=== PATIENT | female | born 1995 | race Hispanic/Latino ===

== ENCOUNTER 2024-01-20 01:15 | Emergency (ER) | payer SELFPAY ==
[~2024-01-20] VITALS: Ht 157.5 cm; Wt 72.1 kg
[2024-01-20] MEDS: 0.9%NACL 1000ML 1,000 ML IV ONE (01:45)
[2024-01-20] MEDS: ondanSETRON 4MG INJ IVP ONE (01:45)
[2024-01-20] MEDS: acetaMINOPHEN 500 MG TABLET PO ONE (01:45)
[2024-01-20 02:03] LABS: BASOPHILS # (AUTO) 0.02 K/uL (0.00-0.20); BASOPHILS % (AUTO) 0.3 % (0.0-5.0); EOSINOPHILS # (AUTO) 0.16 K/uL (0.00-0.70); EOSINOPHILS % (AUTO) 2.1 % (0.0-8.0); HEMATOCRIT 33.1 % (36-48); IMMATURE GRANULOCYTE ABSOLUTE 0.03 K/uL (0-1); LYMPHOCYTES % (AUTO) 25.7 % (21.0-51.0); MEAN CORPUSCULAR HEMOGLOBIN 32.8 pg (27.0-33.0); MEAN CORPUSCULAR HGB CONC 34.7 g/dL (32.0-36.0); MEAN CORPUSCULAR VOLUME 94.3 fL (79-99); MONOCYTES # (AUTO) 0.6 K/uL (0.1-1.0); MONOCYTES % (AUTO) 7.8 % (3.0-13.0); NEUTROPHILS % (AUTO) 63.7 % (40.0-77.0); PLATELET COUNT (AUTO) 205 K/uL (130-400); RED BLOOD CELL COUNT(AUTO) 3.51 MIL/uL (4.00-5.50); RED CELL DISTRIBUTION WIDTH 12.1 % (11.0-15.5); WHITE BLOOD COUNT (AUTO) 7.8 K/uL (4.8-10.8)
[2024-01-20 02:12] LABS: CREATININE 0.6 mg/dL (0.5-1.0); POTASSIUM 3.7 mmol/L (3.5-5.1)
[2024-01-20 02:31] LABS: APPEARANCE,URINE CLOUDY (CLEAR); BILIRUBIN,URINE NEGATIVE (NEGATIVE); COLOR,URINE LIGHT-YELLOW (YELLOW); GLUCOSE, URINE (UA) 500 mg/dL (NEGATIVE); KETONES,URINE 5 mg/dL (NEGATIVE); LEUKOCYTE ESTERASE ,URINE 250 Leu/uL (NEGATIVE); NITRATE,URINE NEGATIVE (NEGATIVE); OCCULT BLOOD,URINE NEGATIVE (NEGATIVE); PROTEIN,URINE 10 mg/dL (NEGATIVE); UROBILINOGEN,URINE 0.2 mg/dL (0.2-1.0)
[2024-01-20 02:32] LABS: ADD UA MICROSCOPIC YES
[2024-01-20 02:43] LABS: BACTERIA,URINE None Seen /HPF (None Seen)
[2024-01-20 02:44] LABS: MUCUS,URINE Rare LPF (None Seen); SQUAMOUS EPITHELIAL CELL,UR Many /HPF (0-2)
[2024-01-20 02:46] LABS: HCG,QUALITATIVE URINE POSITIVE (NEGATIVE)
[2024-01-20] MEDS: cefTRIAXone 1G VIAL IVPB ONE (03:07)
[2024-01-20 03:55] VITALS: BP 108/66; PULSE 98; RESP 18; TEMP 98.4; O2SAT 99
[2024-01-20] MEDS ORDERED: NITR100C4 PO (03:58)
[2024-01-20] MEDS ORDERED: ONDA-243 PO (03:58)
== END 2024-01-20 04:04 | disposition home or self-care (01) ==
LOC: EDH 01:15
DX: O23.41 Unspecified infection of urinary tract in pregnancy, first trimester (principal); N39.0 Urinary tract infection, site not specified; R10.2 Pelvic and perineal pain; O21.0 Mild hyperemesis gravidarum; Z3A.10 10 weeks gestation of pregnancy
CPT/HCPCS: 99285; 96374; 76801; 96375; 80048; 84702; 85025; 87086; 81001; 81025; 36415; J7030; J0696; J2405

== ENCOUNTER 2024-04-10 20:27 | Emergency (ER) | payer SELFPAY ==
[~2024-04-10] VITALS: Ht 157.5 cm; Wt 73.9 kg
[~2024-04-10 20:27] MED LIST: NITR100C4 PO; ONDA-243 PO
[2024-04-10] MEDS: cefTRIAXone 1G VIAL IM ONE (21:10)
[2024-04-10 21:15] LABS: BASOPHILS # (AUTO) 0.04 K/uL (0.00-0.20); BASOPHILS % (AUTO) 0.4 % (0.0-5.0); EOSINOPHILS # (AUTO) 0.18 K/uL (0.00-0.70); EOSINOPHILS % (AUTO) 1.8 % (0.0-8.0); HEMATOCRIT 32.4 % (36-48); IMMATURE GRANULOCYTE ABSOLUTE 0.12 K/uL (0-1); LYMPHOCYTES # (AUTO) 2.6 K/uL (1.0-4.8); LYMPHOCYTES % (AUTO) 26.2 % (21.0-51.0); MEAN CORPUSCULAR HEMOGLOBIN 32.8 pg (27.0-33.0); MEAN CORPUSCULAR VOLUME 96.7 fL (79-99); MONOCYTES # (AUTO) 0.8 K/uL (0.1-1.0); MONOCYTES % (AUTO) 7.7 % (3.0-13.0); NEUTROPHILS # (AUTO) 6.3 K/uL (1.8-7.7); NEUTROPHILS % (AUTO) 62.7 % (40.0-77.0); PLATELET COUNT (AUTO) 236 K/uL (130-400); RED BLOOD CELL COUNT(AUTO) 3.35 MIL/uL (4.00-5.50); RED CELL DISTRIBUTION WIDTH 12.6 % (11.0-15.5); WHITE BLOOD COUNT (AUTO) 10.1 K/uL (4.8-10.8)
[2024-04-10 21:28] LABS: CREATININE 0.5 mg/dL (0.5-1.0); POTASSIUM 4.1 mmol/L (3.5-5.1)
--- NOTE | 2024-04-10 21:58 | ERN ---
General Chief Complaint: Abscess Stated Complaint: ABSCESS Time Seen by MD: 20:32 Time Seen by Midlevel: 20:32 Source: patient History of Present Illness Initial Comments Patient is a 29-year-old female who is currently approximately 20 weeks presents to the emergency department with a perirectal abscess. The abscess is in the right inner buttock area. It has been ongoing for the last four days. She denies any fever, chills, or any other symptoms at home. She states she has not seen an OBGYN for this but was recently diagnosed with a urinary tract infection and was put on Macrobid. Today is the last day she has been on that medication. No other symptoms reported at this time Allergies: Coded Allergies: No Known Allergies (Unverified Allergy, Unknown, 01/20/24) Home Meds Active Scripts Nitrofurantoin Monohyd/M-Cryst (Macrobid 100 mg Capsule) 100 Mg Capsule, 100 MG PO BID for 7 Days, #14 CAP Prov:IKE KUHN MD 01/20/24 Ondansetron (Ondansetron Odt) 4 Mg Tab.rapdis, 4 MG PO Q6H PRN for nausea for 5 Days, #12 TAB 0 Refills Prov:IKE KUHN MD 01/20/24 Past Medical History Past Medical History: No Pertinent History Past Surgical History: Tonsillectomy, Other Surgical History Other: D & C Female( History) LMP: Dec 10, 2023 : 5 Para: 1 Aborts: 3 ROS Dictation CONSTITUTIONAL: Negative except for HPI HEAD/FACE: Negative except for HPI EENT: Negative except for HPI RESPIRATORY: Negative except for HPI GASTROINTESTINAL/ABDOMINAL: Negative except for HPI GENITOURINARY: Negative except for HPI MUSCULOSKELETAL: Negative except for HPI INTEGUMENTARY: Negative except for HPI NEUROLOGICAL/PSYCH: Negative except for HPI HEMATOLOGIC/LYMPHATIC: Negative except for HPI All Systems Negative, Except as noted above. 13 point review of systems assessed and all negative except for above. Physical Exam Physical Exam Dictation Vital Signs reviewed General Appearance: Alert, oriented x 3, no acute distress, well developed, nourished. Head and Face: non-traumatic. Eyes: PERRL, pink conjunctivas, eyelid no trauma, anterior chamber with arcus senilis. Ears: Pinnas intact and no signs of trauma or erythema ear canals clear and no discharge TM no erythema Nose: No discharge, no bleeding. Oropharynx: Mouth normal, tongue pink, pharynx clear,no erythema, tonsils no exudates, no abscesses noted, mucous membrane moist Neck: Supple, non-tender, no thyromegaly, no masses, no JVD, no bruits Breast:Deferred Chest:No tenderness, no crepitus, no paradoxical movement, no retractions Lungs:Clear, well-ventilated, symmetric, no rales, no wheezing, no rhonchi, no stridor, good breath sounds bilaterally Heart: Regular rate, regular rhythm, no murmur, no gallops Vascular: no peripheral edema, Abdomen: Soft, positive bowel sounds, nondistended, no guarding, nontender, no rebound, no masses no hepatomegaly, no splenomegaly, no Newman's sign, no hernias. Rectal: Deferred Genital: Deferred Neurological: Normal speech, motor function intact, sensory function intact Musculoskeletal: Neck nontender, full range of motion, back nontender, full range of motion, Extremities: nontender, full range of motion Skin: Right inner perirectal abscess Lymphatic: Deferred Results Laboratory and Microbiology Lab and Micro Result Laboratory Tests Test 04/10/24 21:05 White Blood Count 10.1 K/uL (4.8-10.8) Red Blood Count 3.35 MIL/uL (4.00-5.50) L Hemoglobin 11.0 g/dL (12.0-16.0) L Hematocrit 32.4 % (36-48) L Mean Corpuscular Volume 96.7 fL (79-99) Mean Corpuscular Hemoglobin 32.8 pg (27.0-33.0) Mean Corpuscular Hemoglobin Concent 34.0 g/dL (32.0-36.0) Red Cell Distribution Width 12.6 % (11.0-15.5) Platelet Count 236 K/uL (130-400) Mean Platelet Volume 10.5 fL (7.5-10.5) Immature Granulocyte % (Auto) 1.2 % (0-1) H Neutrophils (%) (Auto) 62.7 % (40.0-77.0) Lymphocytes (%) (Auto) 26.2 % (21.0-51.0) Monocytes (%) (Auto) 7.7 % (3.0-13.0) Eosinophils (%) (Auto) 1.8 % (0.0-8.0) Basophils (%) (Auto) 0.4 % (0.0-5.0) Neutrophils # (Auto) 6.3 K/uL (1.8-7.7) Lymphocytes # (Auto) 2.6 K/uL (1.0-4.8) Monocytes # (Auto) 0.8 K/uL (0.1-1.0) Eosinophils # (Auto) 0.18 K/uL (0.00-0.70) Basophils # (Auto) 0.04 K/uL (0.00-0.20) Absolute Immature Granulocyte (auto 0.12 K/uL (0-1) Nucleated Red Blood Cells 0.0 % (0.0-0.19) Sodium Level 138 mmol/L (136-145) Potassium Level 4.1 mmol/L (3.5-5.1) Chloride Level 106 mmol/L (101-111) Carbon Dioxide Level 24 mmol/L (21-32) Blood Urea Nitrogen 11 mg/dL (7-18) Creatinine 0.5 mg/dL (0.5-1.0) Glomerular Filtration Rate Calc 132 mL/min (>90) Random Glucose 85 mg/dL (70-105) Lactic Acid Level 1.1 mmol/L (0.8-2.5) Total Calcium 8.6 mg/dL (8.5-10.1) Labs Reviewed?: Yes MDM MDM: Differential diagnosis: Perirectal abscess, cellulitis, perianal abscess There are no social concerns with this patient. Prescription drug management Prescriptions will include: Keflex Medical management and examination interpretation discussions were had by me with other qualified healthcare professionals as indicated for the patient's care. ED Course Orders Procedure Category Date Status Time Cbc With Differential LAB 04/10/24 Complete 20:53 Basic Metabolic Panel LAB 04/10/24 Complete 20:53 Lactic Acid LAB 04/10/24 Complete 20:53 Us Soft Tissue US 04/10/24 Taken Perineum 20:53 Ceftriaxone 1g Vial PHA 04/10/24 Complete (Rocephine 1g Inj) 21:00 Current Medications Medications (Trade) Dose Ordered Sig/Daren Route PRN Reason Start Time Stop Time Status Last Admin Dose Admin Ceftriaxone Sodium (ROCEphine 1G INJ) 1 gm ONCE ONCE IM 04/10/24 21:00 04/10/24 21:01 DC 04/10/24 21:10 Vital Signs Date Time Temp Pulse Resp B/P (MAP) Pulse Ox O2 Delivery O2 Flow Rate FiO2 04/10/24 20:50 98.1 110 18 130/80 99 Room Air* 0 21 04/10/24 20:29 97.9 110 18 131/83 99 0 [facility] [address] [place] [address] IMAGING REPORT Signed PATIENT: SONIA IYER MR#: [id number] : 1995 SEX: F AGE: 29 LOCATION: [facility] ORDER 56 STATUS: REG ER REPORT#: [id number] SERVICE 52 REASON: r/o perirectal abscess ORDERING PHYSICIAN: VI DAHL PROCEDURE: SOFT PERIN - US SOFT TISSUE PERINEUM US SOFT TISSUE PERINEUM HISTORY: perirectal abscess COMPARISON: None FINDINGS: In the area of interest there is a 3.1 x 1.6 x 2.7 cm complex fluid collection with adjacent hyperemia most consistent with perirectal abscess. IMPRESSION: Perirectal abscess. DICTATED BY: EARLINE DIGGS DO DATE: 04/10/242156 ELECTRONICALLY SIGNED BY: EARLINE DIGGS DO DATE: 04/10/242199 DX & DISP Disposition: Discharge Departure Impression: Primary Impression: Perirectal abscess Condition: Stable Scripts Cephalexin Monohydrate (Keflex) 500 Mg Cap 500 MG PO QID for 7 Days, #28 CAP Prov: VI DAHL 04/10/24 Additional Instructions: Your blood work today is unremarkable. Your ultrasound shows a perirectal abscess which is consistent with the physical exam that we performed. You were given IV antibiotics in the emergency department. I have given you a prescription for oral antibiotics for outpatient management. You will need to follow up with your primary care doctor in 2-3 days for repeat evaluation. I have also given you a follow up with the general surgeon cecum follow up outpatient. Referrals: JAYDEN HORTON (PCP) TOMMIE KEMP MD Time of Disposition: 22:05 I have reviewed the case, and I agree with, Diagnosis and Plan I performed the substantive portion of the visit. I have reviewed and personally made and approve the management plan that is documented in the note by myself or the YVONNE. I acknowledge for responsibility for the patient's manage ment plan. VI DAHL Apr 10, 2024 21:58
[2024-04-10] MEDS ORDERED: CEPH500B PO (22:05)
[2024-04-10 22:06] VITALS: BP 126/76; PULSE 90; RESP 16; TEMP 98.1; O2SAT 98
== END 2024-04-10 22:19 | disposition home or self-care (01) ==
LOC: EDH 20:27
DX: O99.712 Diseases of the skin and subcutaneous tissue complicating pregnancy, second trimester (principal); K61.1 Rectal abscess; Z90.89 Acquired absence of other organs; Z3A.17 17 weeks gestation of pregnancy
CPT/HCPCS: 99285; 76857; 80048; 85025; 83605; 36415; 96372; J0696

== ENCOUNTER 2024-07-14 23:41 | Emergency (ER) | payer MEDICAID ==
[~2024-07-14] VITALS: Ht 160 cm; Wt 78.5 kg
[~2024-07-14 23:41] MED LIST changes: +CEPH500B PO
[2024-07-15 00:31] LABS: CREATININE 0.7 mg/dL (0.5-1.0)
[2024-07-15 00:45] LABS: ADD UA MICROSCOPIC YES; APPEARANCE,URINE CLOUDY (CLEAR); BILIRUBIN,URINE NEGATIVE (NEGATIVE); COLOR,URINE YELLOW (YELLOW); GLUCOSE, URINE (UA) NEGATIVE (NEGATIVE); KETONES,URINE 5 mg/dL (NEGATIVE); LEUKOCYTE ESTERASE ,URINE 75 Leu/uL (NEGATIVE); NITRATE,URINE NEGATIVE (NEGATIVE); OCCULT BLOOD,URINE NEGATIVE (NEGATIVE); PH,URINE 6.5 (5.0-8.0); PROTEIN,URINE 30 mg/dL (NEGATIVE); UROBILINOGEN,URINE 0.2 mg/dL (0.2-1.0)
[2024-07-15 00:47] LABS: BASOPHILS # (AUTO) 0.03 K/uL (0.00-0.20); BASOPHILS % (AUTO) 0.3 % (0.0-5.0); EOSINOPHILS # (AUTO) 0.07 K/uL (0.00-0.70); EOSINOPHILS % (AUTO) 0.8 % (0.0-8.0); HEMATOCRIT 30.7 % (36-48); IMMATURE GRANULOCYTE ABSOLUTE 0.06 K/uL (0-1); LYMPHOCYTES # (AUTO) 2.1 K/uL (1.0-4.8); LYMPHOCYTES % (AUTO) 23.4 % (21.0-51.0); MEAN CORPUSCULAR HEMOGLOBIN 32.6 pg (27.0-33.0); MEAN CORPUSCULAR HGB CONC 34.2 g/dL (32.0-36.0); MEAN CORPUSCULAR VOLUME 95.3 fL (79-99); MONOCYTES # (AUTO) 0.6 K/uL (0.1-1.0); MONOCYTES % (AUTO) 6.5 % (3.0-13.0); NEUTROPHILS % (AUTO) 68.3 % (40.0-77.0); PLATELET COUNT (AUTO) 218 K/uL (130-400); RED BLOOD CELL COUNT(AUTO) 3.22 MIL/uL (4.00-5.50); RED CELL DISTRIBUTION WIDTH 12.7 % (11.0-15.5); WHITE BLOOD COUNT (AUTO) 8.8 K/uL (4.8-10.8)
--- NOTE | 2024-07-15 00:52 | NUR ---
CARE ENDORSED TO NEO JONES
[2024-07-15 00:54] LABS: BACTERIA,URINE MANY /HPF (None Seen); CALCIUM OXALATE CRYSTALS,UR MANY /LPF (None Seen); MUCUS,URINE FEW LPF (None Seen); SQUAMOUS EPITHELIAL CELL,UR MOD /HPF (0-2); WBC CLUMP FEW /HPF (0-1)
[2024-07-15] MEDS ORDERED: CEPH500T PO (01:31)
--- NOTE | 2024-07-15 01:33 | ERN ---
ED Note History of Present Illness Stated Complaint: VAGINAL PAIN. DUE DATE 07/14/24 Chief Complaint: OB>20 weeks gest. Time Seen by MD: 23:43 Dictation: This is a 29-year-old female who is in the 3rd trimester of -39 weeks with a due date 07/14 2024. She started feeling vaginal pressure got concerned and came to the ER. She is not feeling any contractions vaginal bleeding. No rupture of membranes or amniotic fluid leak. This is her 2nd full-term after many years and she was somewhat anxious. Has been was at bedside Temperature 98 pulse 104 respirations 20 blood pressure 127/78 pulse oximetry 98% on room air She had regular care and is followed by OBGYN physicians at [facility] in [place] no issues with diabetes, hypertension or any other co mplications other than hyperemesis gravidarum in the 1st trimester Allergies: Coded Allergies: No Known Allergies (Unverified Allergy, Unknown, 01/20/24) Home Meds Active Scripts Cephalexin (Cephalexin) 500 Mg Tablet, 1 TAB PO TID for 10 Days, #30 TAB 0 Refills Prov:STU MAIER MD 07/15/24 Cephalexin Monohydrate (Keflex) 500 Mg Cap, 500 MG PO QID for 7 Days, #28 CAP Prov:VI DAHL 04/10/24 Nitrofurantoin Monohyd/M-Cryst (Macrobid 100 mg Capsule) 100 Mg Capsule, 100 MG PO BID for 7 Days, #14 CAP Prov:IKE KUHN MD 01/20/24 Ondansetron (Ondansetron Odt) 4 Mg Tab.rapdis, 4 MG PO Q6H PRN for nausea for 5 Days, #12 TAB 0 Refills Prov:IKE KUHN MD 01/20/24 Past Medical History Past Medical History: No Pertinent History Surgical History: Tonsillectomy, Other Surgical History Other: D & C, RHINOPLASTY Family History: Negative Social History: Negative : 5 Para: 1 Aborts: 3 RN Note Reviewed/Agreed w/PFSH: Yes Review of System Dictation Constitutional: Negative for fever,chills, and weight loss Eyes: Negative for injury, pain,redness, and discharge ENT: Negative for injury,pain or swelling Cardiovascular: Negative for chest pain, palpitations, and edema Respiratory: Negative for shortness of breath, cough, and wheezing, Abdomen/GI: Negative for abdominal pain, nausea, vomiting, diarrhea, and constipation Back: Negative for injury and pain : Negative for injury, bleeding and discharge positive for pressure in the vagina and pelvic region. MS/Extremity: Negative for injury and deformity Skin: Negative for rash, and discoloration Neuro: Negative for headache, weakness, numbness, tingling, and seizure Psych: Negative for suicide ideation, homicidal ideation, and hallucinations Initial Vital Sign VS Vital Signs Date Time Temp Pulse Resp B/P (MAP) Pulse Ox O2 Delivery O2 Flow Rate FiO2 07/14/24 23:42 98.1 104 20 127/78 98 Room Air 07/15/24 00:09 0 21 Physical Exam Dictation General: awake, alert, NAD Head/Face: Normocephalic, atraumatic Eyes: PERRL, EOMI, vision at baseline ENT: oral cavity clear, TMs clear, no signs of infection Neck: Trachea midline, supple, no nuchal rigidity Cardiovascular: RRR, normal S1/S2, No MRGs, no JVD Respiratory: CTAB, no respiratory distress, No rales or wheezes Abdomen: Soft, non-tender, non-distended, normal bowel sounds, no guarding or rebound. Skin: Warm, dry, normal turgor, no rash MS/Extremity: Pulses equal, no cyanosis, neurovascular intact, FROM Neuro: COAx4, GCS 15, strength 5/5, CN 2-12 intact, normal cerebellar exam, normal gait, Psych: Normal behavior, mood, and affect normal Extremities-trace edema without any palpable cords, Homans sign is negative Pelvic exam-patient was placed in lithotomy position and using warm lubricant on the gloved finger vaginal exam was done patient had some pain once she relaxed I was able to complete the exam. Cervix is still 1 cm no effacement noted no bleeding noted no rupture of the membranes noted Results (Laboratory/Radiology) Laboratory/Radiology Laboratory Tests Test 07/15/24 00:07 White Blood Count 8.8 K/uL (4.8-10.8) Red Blood Count 3.22 MIL/uL (4.00-5.50) L Hemoglobin 10.5 g/dL (12.0-16.0) L Hematocrit 30.7 % (36-48) L Mean Corpuscular Volume 95.3 fL (79-99) Mean Corpuscular Hemoglobin 32.6 pg (27.0-33.0) Mean Corpuscular Hemoglobin Concent 34.2 g/dL (32.0-36.0) Red Cell Distribution Width 12.7 % (11.0-15.5) Platelet Count 218 K/uL (130-400) Mean Platelet Volume 11.2 fL (7.5-10.5) H Immature Granulocyte % (Auto) 0.7 % (0-1) Neutrophils (%) (Auto) 68.3 % (40.0-77.0) Lymphocytes (%) (Auto) 23.4 % (21.0-51.0) Monocytes (%) (Auto) 6.5 % (3.0-13.0) Eosinophils (%) (Auto) 0.8 % (0.0-8.0) Basophils (%) (Auto) 0.3 % (0.0-5.0) Neutrophils # (Auto) 6.0 K/uL (1.8-7.7) Lymphocytes # (Auto) 2.1 K/uL (1.0-4.8) Monocytes # (Auto) 0.6 K/uL (0.1-1.0) Eosinophils # (Auto) 0.07 K/uL (0.00-0.70) Basophils # (Auto) 0.03 K/uL (0.00-0.20) Absolute Immature Granulocyte (auto 0.06 K/uL (0-1) Nucleated Red Blood Cells 0.0 % (0.0-0.19) Urine Color YELLOW (YELLOW) Urine Appearance CLOUDY (CLEAR) H Urine pH 6.5 (5.0-8.0) Urine Specific [place] 1.030 (1.001-1.031) Urine Protein 30 mg/dL (NEGATIVE) H Urine Glucose (UA) NEGATIVE mg/dL (NEGATIVE) Urine Ketones 5 mg/dL (NEGATIVE) H Urine Occult Blood NEGATIVE (NEGATIVE) Urine Nitrate NEGATIVE (NEGATIVE) Urine Bilirubin NEGATIVE mg/dL (NEGATIVE) Urine Urobilinogen 0.2 mg/dL (0.2-1.0) Urine Leukocyte Esterase 75 [place]/uL (NEGATIVE) H Urine RBC 2-5 /HPF (0-1) H Urine WBC 11-25 /HPF (0-1) H Urine WBC Clumps (Auto) FEW /HPF (0-1) Urine Squamous Epithelial Cells MOD /HPF (0-2) Urine Calcium Oxalate Crystals MANY /LPF (None Seen) Urine Bacteria MANY /HPF (None Seen) Urine Hyaline Casts 2-5 /LPF (0-1 /LPF) H Sodium Level 134 mmol/L (136-145) L Potassium Level 4.0 mmol/L (3.5-5.1) Chloride Level 105 mmol/L (101-111) Carbon Dioxide Level 23 mmol/L (21-32) Blood Urea Nitrogen 11 mg/dL (7-18) Creatinine 0.7 mg/dL (0.5-1.0) Glomerular Filtration Rate Calc 121 mL/min (>90) Random Glucose 81 mg/dL (70-105) Total Calcium 8.4 mg/dL (8.5-10.1) L Labs Reviewed?: Yes ED Course ED Course Orders Procedure Category Date Status Time Urinalysis Profile LAB 07/14/24 Complete 23:57 Cbc With Differential LAB 07/14/24 Complete 23:57 Basic Metabolic Panel LAB 07/14/24 Complete 23:57 Culture Urine EMILY 07/15/24 In Process 00:45 Ceftriaxone 1g Vial PHA 07/15/24 Complete (Rocephine 1g Inj) 01:30 Current Medications Medications (Trade) Dose Ordered Sig/Daren Route PRN Reason Start Time Stop Time Status Last Admin Dose Admin Ceftriaxone Sodium (ROCEphine 1G INJ) 1 gm ONCE ONCE IVPB 07/15/24 01:30 07/15/24 01:33 DC Vital Signs Date Time Temp Pulse Resp B/P (MAP) Pulse Ox O2 Delivery O2 Flow Rate FiO2 07/15/24 00:09 97.2 102 20 101/64 98 Room Air* 0 21 07/14/24 23:42 98.1 104 20 127/78 98 Room Air We will perform diagnostic labs, and administer medications according to the patient's complaint. Once the results are available, will review and personally interpreted the labs to rule out any acute life-threatening emergency the trach require immediate intervention and treatment. I will then re-evaluate the patient after treatment and diagnostic exams have return to determine whether the patient requires any further testing, can safely be discharged home or need further admission to hospital for additional treatment and evaluation 1:30 a.m. labs reviewed BNP 7 is within normal limits. CBC showed a hemoglobin of 10.5. Urinalysis is positive for leuko esterase and WBCs suggestive of UTI. Pelvic exam did not reveal any effacement of the cervix cervix is closed at about 1 cm still. No vaginal discharge noted 1:50 a.m. empiric Rocephin 1 dose given Encourage p.o. fluids and discharge on cephalexin for UTI in Medical Decision Making MDM MDM: Differential diagnosis: Vaginal pain-could be from pelvic ligament stretching, movement of the baby, stretching of the cervix, UTI Rationale: Tests considered and ordered secondary to shared decision making include: Previous outside records reviewed: Old ER visits. Risk of complication and/or morbidity or mortality of patient management: None Medications-Per medication reconciliation Need for hospitalization: Patient does not meet criteria for hospitalization. Need for emergency major/minor surgery: No There are no social concerns with this patient. Prescription drug management Prescriptions will include symptomatic care Patient's prior external medical records from other ER visits were reviewed by me as indicated. Prior testing and results from previous visits were reviewed. Prior tests were taken into account with medical decision making and resource utilization, independent historian/historians were used to obtain complete medical history. I independently interpreted the test that were performed, results were reviewed by me and considered findings on radiology if ordered. Medical management and examination interpretation discussions were had by me with other qualified healthcare professionals as indicated for the patient's care. Problem List Problem List: (1) Intrauterine (2) Vaginal pain (3) UTI (urinary tract infection) DX & DISP Disposition: Discharge Departure Impression: Primary Impression: UTI (urinary tract infection) Additional Impressions: Vaginal pain, Intrauterine Condition: Stable Scripts Cephalexin (Cephalexin) 500 Mg Tablet 1 TAB PO TID for 10 Days, #30 TAB 0 Refills Prov: STU MAIER MD 07/15/24 Additional Instructions: Patient and the caregiver have been informed of all the diagnostic tests and the imaging conducted during the today's visit to the emergency room and has verbalized understanding of the results I have personally reviewed and interpreted all diagnostic exams performed here in the ER today as well as the vital signs documented by the nursing staff. The patient is now being discharged to home and should follow up with the primary care physician or the specialist as directed by the ER staff. Follow-up with primary care provider in 1 to 2 days. Take medications as directed here in the emergency room. Okay to continue home medications unless otherwise discussed during your visit in the emergency room today. Return to your nearest emergency room if symptoms worsen or if there is no improvement. Call 911 if you need immediate assistance. Take Tylenol or Motrin [id number] as needed and if no contraindications are present. Increase oral hydration. A wound culture or urine culture was ordered here in the emergency room department please follow-up with primary care provider and advise them to get repeat ports from our facility. If you had any Jude wrap/splints that were applied here, please do not remove them until you see your primary care or specialty. Patient will follow up with her OB on Tuesday. Referrals: ANDREEA ANGELES (PCP) STU MAIER MD Jul 15, 2024 01:33
[2024-07-15] MEDS: cefTRIAXone 1G VIAL IVPB ONE (01:52)
[2024-07-15 02:02] VITALS: BP 121/50; PULSE 88; RESP 16; TEMP 97.6; O2SAT 99
== END 2024-07-15 02:13 | disposition home or self-care (01) ==
LOC: EDH 23:41
DX: O23.43 Unspecified infection of urinary tract in pregnancy, third trimester (principal); N39.0 Urinary tract infection, site not specified; Z3A.39 39 weeks gestation of pregnancy; Z90.89 Acquired absence of other organs
CPT/HCPCS: 99284; 80048; 85025; 87086; 81001; 36415; 96365; J0696